=== PATIENT | female | born 1995 | race Caucasian/White ===

== ENCOUNTER → 2020-01-31 | Outpatient (CLI) | payer OTHER ==
[~2020-01-31] MED LIST: AMITRIPTYLINE H10 M1 PO; EPIPEN0.3 MG/0.3 IM; PREDNISONE 20 M20 MG PO; SINGULAIR; ZYRTEC
== END ==
LOC: M.ULTRA 01-30 08:29
PROVIDERS: ATTEND Nurse Practitioner Family
DX: N94.10 Unspecified dyspareunia (principal); N92.5 Other specified irregular menstruation